=== PATIENT | male | born 1975 | race Caucasian/White ===

== ENCOUNTER 2021-09-28 10:44 | Emergency (ER) | payer MEDICAID ==
[~2021-09-28] VITALS: Ht 177.8 cm; Wt 95.3 kg
[2021-09-28 12:14] VITALS: BP_SYST 105
--- NOTE | 2021-09-28 12:23 | NUR ---
BIBS WITH C/C OF RASH TO LOWER CHIN AND LEFT CHEST. REPORTED HAVING RASH X 3 DAYS. DENIES ANY PAIN/IRRITATION. REPORTED HIMSELF AND OTHERS FROM THE [facility] HOME THAT HE RESIDES HAVE THE SAME RASH. PENDING DR. WATT TO ASSESS.
[2021-09-28] MEDS ORDERED: KETO60CR2 TP (14:30)
[2021-09-28] MEDS ORDERED: BETA45CR3 TP (14:30)
[2021-09-28 15:00] VITALS: BP_SYST 136
--- NOTE | 2021-09-28 15:01 | NUR ---
PT CLEARED FOR DC. RX SENT TO PHARM. PT VERBALIZED UNDERSTANDING OF DC INSTRUCTIONS. CONDITION STABLE AT DC.
== END 2021-09-28 15:00 | disposition home or self-care (01) ==
LOC: SED 10:44
DX: R21 Rash and other nonspecific skin eruption (principal); B35.3 Tinea pedis; Z79.899 Other long term (current) drug therapy
CPT/HCPCS: 99283